=== PATIENT | male | born 1970 | race Caucasian/White ===

== ENCOUNTER 2022-05-08 11:51 | Day surgery (SDC) | payer OTHER, SELFPAY ==
[2022-05-08] VITALS (10 sets, daily range): BP systolic 105–177; BP diastolic 86–110; PULSE 63–75; RESP 18–20; TEMP 36–36.4; O2SAT 93–100; BMI 38.0
[2022-05-08] MEDS: LACTATED RINGERS 1000 ML 1,000 ML 100 ML IV ×2 (12:20→16:21)
[2022-05-08] MEDS: SODIUM CHLORIDE 0.9 % (FLUSH) 10 ML SYRINGE IVF (12:21)
--- NOTE | 2022-05-08 14:26 | CRLHL7_ITS ---
For Patients: As a result of the Century Cures Act, medical imaging exams and procedure reports are released immediately into your electronic medical record. You may view this report before your referring provider. If you have questions, please contact your health care provider. INDICATION: Stone removal TECHNIQUE: Intraoperative C-arm fluoroscopy. IMPRESSION: intraoperative C-arm fluoroscopy images were provided. Fluoroscopy time 1 minutes 52 seconds. Two images were captured. Images demonstrate wires extending to the renal pelvis. Subsequent image demonstrates catheter pigtail within the bladder. Dictated by Margaux Urrutia MD @ 05/08/2022 5:31:48 PM (Electronically Signed)
--- NOTE | 2022-05-08 15:02 | PM.GSPRC ---
Operative Note Date of procedure: 05/08/22 Type of Procedure: 1. rigid cystoscopy 2. right retrograde pyelogram 3. right ureteroscopy with laser lithotripsy 4. right ureteral stent placement Procedure Description: After informed consent was obtained within the preoperative care unit the patient was transferred to the operative theater in stable condition. There he was transferred from his [facility] to the operative table and placed in supine position. Bilateral lower extremity sequential compression devices were applied and perioperative antibiotic prophylaxis was undertaken with cefazolin. After appropriate induction of general anesthesia the patient was repositioned to the dorsal lithotomy position bilateral lower extremities in Enrique stirrups. His genitalia was then prepped and draped in the usual sterile fashion utilizing Betadine. At this point a surgical timeout was performed with all those in attendance agreeing correct patient, procedure, and laterality. A 22F rigid cystoscope was advanced to the level of the urinary bladder under direct visualization. There were multiple concentric urethral strictures that I was able to navigate with the rigid scope. The prostate was noted to be hypertrophied and bi-lobar. Upon entry into the bladder, it was decompressed and re-evaluated under sterile saline irrigation. Bilateral ureteral orifices were identified within the orthotopic position. There were grade 1-2 trabeculations, no stones, and no mucosal lesions were identified. I then turned my attention to the right ureteral orifice. A Sensor guidewire was advanced proximally under fluoroscopic guidance. The scope was removed after emptying the bladder. A dual lumen catheter was then advanced and a retrograde pyelogram was performed. On farm operations manager imaging the stone was visible as an opacification in the area of the proximal ureter. Upon instillation of contrast this was confirmed with moderate associated hydro ureteral nephrosis. I then advanced a 2nd Sensor wire and the dual-lumen catheter was removed. A ureteral access sheath was then advanced to the level of the distal ureter as the transmural ureter was noted to be stenotic. I then advanced the flexible ureteroscope to the level of the proximal ureter under direct visualization. The stone was visible within the ureteral lumen. A 200 nm holmium laser fiber was then advanced and the stone dusted to approximately 3 mm fragments. An extraction basket was then utilized to secure the remaining stone material and carefully extract it. The ureteral course was inspected upon removal of the stone with no addition stone material seen. There was moderate residual edema so decision was made to leave a ureteral stent. The remaining Sensor guidewire was back-loaded into the cystoscope. A 6 F x 26 cm ureteral stent was then deployed using a combination of direct vision and fluoroscopic guidance so that a generous curl was created within the renal pelvis and distal curl within the urinary bladder. The bladder was decompressed thus concluding the case. Patient tolerated the procedure well and without complication. EBL was 10 ml and all surgical counts were correct. The patient was repositioned to a supine position before being awoken from general anesthesia transferred back to his [facility] and discharged to the postanesthesia care unit in stable condition. 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 Stenotic distal ureter. 9 mm stone fragmented and dusted. Implants: Right 6 German by 26 cm ureteral stent Surgeon: Amari Erickson MD Estimated blood loss (mL): 10 Condition: stable Disposition: PACU
[2022-05-08] MEDS: CEFAZOLIN 2 GM INJ IVP (15:10)
--- NOTE | 2022-05-08 16:59 | W.ANESCHARGE ---
Anesthesia Charges Start Date/Time Anesthesia Start Date: 05/08/22 Anesthesia Start Time: 14:59 Stop Date/Time Anesthesia Stop Date: 05/08/22 Anesthesia Stop Time: 16:57 Summary Emergency: No
--- NOTE | 2022-05-08 19:29 | PC.NURSE ---
PATIENT PLEASANT AND COOPERATIVE, URGE TO VOID, BRING RED URINE WITH SMALL CLOT NOTED, PATIENT ABLE TO PASS URINE BUT FEELS LOTS OF PRESSURE TO VOID, UP IND WITH STEADY GAIT, DECLINING NAUSEA, TOLERATING CLEAR LIQUIDS, FAMILY GIVEN DISCHARGE INFORMATION PRIOR TO ARRIVING TO FLOOR VERBALIZED RECEIVING INSTRUCTIONS, PAIN 3-5/10 IN PENIS, IV REMOVED.
--- NOTE | 2022-05-09 06:41 | W.ANESCHARGE ---
Anesthesia Charges Start Date/Time Anesthesia Start Date: 05/08/22 Anesthesia Start Time: 14:59 Stop Date/Time Anesthesia Stop Date: 05/08/22 Anesthesia Stop Time: 16:57 Summary Emergency: No
[2022-05-21 09:19] LABS: Calculi Mass 30
== END 2022-05-08 19:30 | disposition home or self-care (01) ==
PROVIDERS: PCP Surgery; Visit Provider Urology
PROC: 0TJB8ZZ Inspection of Bladder, Via Natural or Artificial Opening Endoscopic (ICD-10-PCS; CPT 52005; principal; 2022-05-08 13:00)
DX: N13.2 Hydronephrosis with renal and ureteral calculous obstruction (principal); N35.919 Unspecified urethral stricture, male, unspecified site
CPT/HCPCS: 52356; 00918; 74420; 82365; C1758; C1769; C2617; J0690; J2250; J2400; J2405; J2704; J3010; J3490; J7120

== ENCOUNTER 2024-02-18 08:01 | Outpatient (CLI) | payer OTHER, SELFPAY ==
--- NOTE | 2024-02-18 08:15 | FL_ITS ---
Patient: BELTRAN MCKENNA Facility:?[facility] Patient ID:?[id number] Site Patient ID:?[id number]. Site :?[id number] Study:?XRay-Abdomen Esophagus w/air to Read-02/18/2024 9:17:00 AM Ordering Physician:NICOLLE Final Report: Technique: Double-contrast esophagram performed after the uneventful administration of effervescent crystals and thick barium. Fluoroscopy time 2 minutes. Indication: Swallowing difficulties Comparison: None. Findings: Esophagus: Delayed transit of contrast through the esophagus noted, particularly with prone position. Lobular contour of the mid and distal esophagus noted toward the end of the examination. No stricture or ulcer. No hernia. Gastroesophageal reflux: Present. Other: Calcified gallstones in the right upper quadrant measuring up to 1.3 cm. Impression: Mucosal irregularity involving the mid and distal esophagus most likely related to reflux esophagitis. Spontaneous reflux is present. No hernia. Delayed motility. Would consider EGD for further evaluation to exclude Rai`s. Cholelithiasis. Right upper quadrant ultrasound recommended. Dictated by Joni Jeffries MD @ 02/18/2024 12:41:58 PM Signed by:?Joni Jeffries MD @02/18/2024 12:41:58 PM (Electronic Signature)
== END 2024-02-18 08:02 | disposition home or self-care (01) ==
LOC: RAD 08:03
PROVIDERS: PCP Surgery; Visit Provider Surgery
DX: R13.10 Dysphagia, unspecified (principal); K21.9 Gastro-esophageal reflux disease without esophagitis; K80.20 Calculus of gallbladder without cholecystitis without obstruction
CPT/HCPCS: 74221